=== PATIENT | male | born 1965 | race Caucasian/White ===

== ENCOUNTER 2022-07-23 13:09 | Outpatient (CLI) | payer OTHER, SELFPAY ==
[2022-07-23 21:53] LABS: Albumin* 4.6 g/dL (3.3-5.0); Chloride* 104 mmol/L (96-114)
[2022-07-23 21:54] LABS: Sodium* 137 mmol/L (135-149)
[2022-07-23 21:56] LABS: Aspartate Amino Transferase* 40 U/L (12-35); Bilirubin Total* 0.9 mg/dL (0.1-1.5); Blood Urea Nitrogen* 13 mg/dL (7-30); Carbon Dioxide* 26 mmol/L (20-32); Cholesterol* 220 mg/dL (90-199); Creatinine* 0.8 mg/dL (0.5-1.5); Estimated Glomerular Filt Rate 104 ml/min; Glucose* 109 mg/dL (60-115); Total Protein* 7.9 g/dL (6.0-8.3)
[2022-07-23 21:57] LABS: Alanine Aminotransferase* 29 U/L (4-50); Alkaline Phosphatase* 67 U/L (40-150); Calcium* 9.3 mg/dL (8.4-10.6); HDL Cholesterol* 98 mg/dL (>=40); LDL Cholesterol Calculated 111 mg/dL (<100); Triglycerides* 54 mg/dL (40-149)
[2022-07-23 22:15] LABS: TSH With Reflex to FT4* 0.866 uIU/mL (0.270-4.200)
[2022-07-23 22:21] LABS: PSA Screen* 1.13 ng/mL (0.10-4.00)
== END 2022-07-23 13:10 | disposition home or self-care (01) ==
PROVIDERS: PCP Physician Assistant Medical; Visit Provider Physician Assistant Medical
DX: Z00.00 Encounter for general adult medical examination without abnormal findings (principal); E87.1 Hypo-osmolality and hyponatremia; I10 Essential (primary) hypertension; F41.9 Anxiety disorder, unspecified; Z12.5 Encounter for screening for malignant neoplasm of prostate; Z13.6 Encounter for screening for cardiovascular disorders; Z13.29 Encounter for screening for other suspected endocrine disorder
CPT/HCPCS: 80053; 80061; 84153; 84443

== ENCOUNTER 2022-08-21 09:06 | Outpatient (CLI) | payer OTHER, SELFPAY ==
--- NOTE | 2022-08-21 10:04 | W.ANESCHARGE ---
Anesthesia Charges Start Date/Time Anesthesia Start Date: 08/21/22 Anesthesia Start Time: 09:35 Stop Date/Time Anesthesia Stop Date: 08/21/22 Anesthesia Stop Time: 09:58
--- NOTE | 2022-08-21 10:07 | W.ANESCHARGE ---
Anesthesia Charges Start Date/Time Anesthesia Start Date: 08/21/22 Anesthesia Start Time: 09:35 Stop Date/Time Anesthesia Stop Date: 08/21/22 Anesthesia Stop Time: 09:58
== END 2022-08-21 09:07 | disposition home or self-care (01) ==
PROVIDERS: PCP Physician Assistant Medical; Visit Provider Internal Medicine
DX: Z86.010 Personal history of colon polyps (principal); K63.5 Polyp of colon; K57.30 Diverticulosis of large intestine without perforation or abscess without bleeding
CPT/HCPCS: 00812; 45380; 88305; J2704

== ENCOUNTER 2022-12-16 15:27 | Outpatient (CLI) | payer OTHER, SELFPAY | END 2022-12-16 15:28 | disposition home or self-care (01) | LOC: NFLDREF 12-17 07:40 | PROVIDERS: PCP Physician Assistant Medical; Referring Provider Physician Assistant Medical; Visit Provider Physician Assistant Medical | DX: Z00.00 Encounter for general adult medical examination without abnormal findings (principal); R74.8 Abnormal levels of other serum enzymes; Z23 Encounter for immunization | CPT/HCPCS: 80076; 86703; 86803 ==

== ENCOUNTER 2023-07-14 13:20 | Outpatient (CLI) | payer OTHER, SELFPAY | END 2023-07-14 13:21 | disposition home or self-care (01) | PROVIDERS: PCP Physician Assistant Medical; Visit Provider Physician Assistant Medical | DX: Z12.5 Encounter for screening for malignant neoplasm of prostate (principal); N52.9 Male erectile dysfunction, unspecified; Z13.220 Encounter for screening for lipoid disorders; Z13.29 Encounter for screening for other suspected endocrine disorder; I10 Essential (primary) hypertension | CPT/HCPCS: 80053; 80061; 84403; 84443; G0103 ==

== ENCOUNTER 2023-07-28 12:47 | Outpatient (CLI) | payer OTHER, SELFPAY | END 2023-07-28 12:48 | disposition home or self-care (01) | PROVIDERS: PCP Physician Assistant Medical; Visit Provider Physician Assistant Medical | DX: E87.1 Hypo-osmolality and hyponatremia (principal); I10 Essential (primary) hypertension; R74.8 Abnormal levels of other serum enzymes | CPT/HCPCS: 84100; 84443 ==

== ENCOUNTER 2023-08-25 14:50 | Outpatient (CLI) | payer OTHER, SELFPAY | END 2023-08-25 14:51 | disposition home or self-care (01) | LOC: NFLDREF 08-27 07:57 | PROVIDERS: PCP Physician Assistant Medical; Referring Provider Physician Assistant Medical; Visit Provider Physician Assistant Medical | DX: E87.1 Hypo-osmolality and hyponatremia (principal) | CPT/HCPCS: 83930; 84300 ==

== ENCOUNTER 2023-09-09 15:40 | Outpatient (CLI) | payer OTHER, SELFPAY | END 2023-09-09 15:41 | disposition home or self-care (01) | LOC: NFLDREF 09-10 11:05 | PROVIDERS: PCP Physician Assistant Medical; Referring Provider Physician Assistant Medical; Visit Provider Physician Assistant Medical | DX: E87.1 Hypo-osmolality and hyponatremia (principal); F10.10 Alcohol abuse, uncomplicated | CPT/HCPCS: 80048; 82746; 83735; 84425 ==

== ENCOUNTER 2023-09-24 11:59 | Outpatient (CLI) | payer OTHER, SELFPAY ==
--- NOTE | 2023-09-24 12:15 | US_ITS ---
Patient: SUSAN LUND Facility:?[facility] Patient ID:?[id number] Site Patient ID:?[id number]. Site :?[id number] Study:?US-Abdomen COMPLETE-09/24/2023 12:40:53 PM Ordering Physician:?SIM SOMMER Final Report: HISTORY: Alcohol abuse COMPARISON: None available. TECHNIQUE: Ultrasound examination of the abdomen was performed. FINDINGS: The gallbladder is normal in appearance with no sign of cholelithiasis or acute cholecystitis. A sonographic Peterson sign is not present, with no pain over the gallbladder during ultrasound examination. The common bile duct is normal in caliber at 4 mm. There are a few small simple cysts in the liver of no clinical concern. The largest is in the inferior left lobe measuring 1.1 x 0.8 x 1.0 centimeters, segment 3. The liver shows no sign of solid mass, contour abnormality or ascites. The liver is slightly small, measuring 15.9 centimeters in length. The pancreatic head and body were examined and are normal in appearance. The abdominal aorta is normal in caliber. The portions of the inferior vena cava that are seen are normal in appearance as well. The kidneys are unremarkable, the right measuring 10.6 cm and the left measuring 11.9 cm in length. The spleen is normal in size and appearance. There is a cyst of uncertain etiology medial to the upper pole of the spleen measuring 1.0 x 1.1 x 1.2 centimeters. This is not in a vascular structure, with no color Doppler flow. It may be a small mesenteric cyst, unlikely to be of clinical concern. IMPRESSION: 1. Liver slightly small, measuring 15.9 centimeters in length. A few simple cysts are seen in the liver have no clinical concern. No findings suggestive of cirrhosis. 2. Simple cyst measuring up to 1.2 centimeters in diameter medial to the upper pole of the spleen, uncertain etiology, unlikely to be of clinical concern. 3. No other abnormality seen in the abdomen. Dictated by Rafy Chambers MD @ 09/25/2023 12:11:51 PM Signed by:?Rafy Chambers MD @09/25/2023 12:11:51 PM (Electronic Signature)
== END 2023-09-24 12:00 | disposition home or self-care (01) ==
LOC: US 12:00
PROVIDERS: PCP Physician Assistant Medical; Visit Provider Physician Assistant Medical
DX: F10.10 Alcohol abuse, uncomplicated (principal); E87.1 Hypo-osmolality and hyponatremia; K76.89 Other specified diseases of liver; D73.4 Cyst of spleen
CPT/HCPCS: 76700

== ENCOUNTER 2024-08-02 14:16 | Outpatient (CLI) | payer OTHER, SELFPAY | END 2024-08-02 14:17 | disposition home or self-care (01) | PROVIDERS: PCP Physician Assistant Medical; Visit Provider Physician Assistant Medical | DX: R74.8 Abnormal levels of other serum enzymes (principal); E87.1 Hypo-osmolality and hyponatremia; I10 Essential (primary) hypertension; Z12.5 Encounter for screening for malignant neoplasm of prostate | CPT/HCPCS: 80053; 84443; G0103 ==

== ENCOUNTER 2024-10-16 06:12 | Day surgery (SDC) | payer OTHER, SELFPAY ==
[2024-10-16] VITALS (11 sets, daily range): BP systolic 106–129; BP diastolic 67–82; PULSE 61–84; RESP 14–20; TEMP 36.4–36.6; O2SAT 98–100; BMI 21.7
[2024-10-16] MEDS: LACTATED RINGERS 1000 ML 1,000 ML 100 ML IV (06:15)
[2024-10-16] MEDS: SODIUM CHLORIDE 0.9 % (FLUSH) 10 ML SYRINGE IVF (06:51)
--- NOTE | 2024-10-16 07:13 | W.PM.H&PU ---
History & Physical Update History & Physical Update H&P Reviewed and patient assessed: No changes noted
--- NOTE | 2024-10-16 07:15 | P.GSOP_ITS ---
Operative Note Date of procedure: 10/16/24 Pre-op diagnosis: 1. Symptomatic right inguinal hernia. 2. Small left inguinal hernia. Post-op diagnosis: 1. Right indirect and direct inguinal hernia with cord lipoma. 2. Left small direct inguinal hernia. Type of Procedure: 1. Laparoscopic bilateral inguinal hernia repair with mesh. Indications: 59-year-old male was seen in clinic for evaluation of right inguinal hernia. Patient was at work attempting to lift a heavy pipe and felt something unusual in her right groin. He did not notice a bulge after that feeling but when he was taking a shower at home, he noticed right inguinal bulge. He denied pain at the bulge. The bulge has been out most of the time. Patient has been wearing a hernia belt to prevent the bulge from popping out. Patient denied any episodes of incarceration. On clinical exam with the patient standing up there was an easily noticeable right inguinal hernia that was reducible. With the patient doing Valsalva, there was also small left inguinal hernia palpated. Given patient's clinical history and his physical exam, a laparoscopic bilateral inguinal hernia repair was recommended. The procedure discussed in detail. The risks associated procedure including infection, bleeding, injury to preperitoneal organs, and hernia recurrence were all discussed with the patient, and he agreed to proceed. Procedure Description: After discussing the risks and benefits of the procedure, the patient signed informed consent.? The operative site was marked and the patient was brought to the operating room and placed on the operating table in supine position.? Care was taken to pad the patient's pressure points.?? The patient was then intubated by anesthesia.?? The operative site was then prepped and draped in the usual sterile fashion.? A time-out was then performed. An infraumbilical skin incision was made with a scalpel and subcutaneous tissues were dissected with electrocautery. Anterior sheath was incised with electrocautery and rectus muscle was retracted laterally. A 12 mm spacemaker dissector system was introduced into the incision and advanced over the posterior sheath. Preperitoneal space was dissected with manually insufflating air under direct visualization. Once the tissues were dissected, the balloon was deflated and removed.? A laparoscopic balloon was placed into preperitoneal space and balloon was inflated. Preperitoneal space was insufflated with air. No bleeding was identified upon examination of preperitoneal space. We then placed two 5 mm ports suprapubically under direct visualization. ? The preperitoneal tissues were bluntly dissected with graspers.? The pubic bone was identified and? cleared from preperitoneal tissue.??I first started on the right side. Inferior epigastrics on the right?side were retracted towards the abdominal wall.?? Spermatic cord? was identified and dissected circumferentially.? This was done bluntly. The direct hernia space was identified.?The indirect hernia sac was noted and peritoneum was dissected bluntly from the spermatic cord. There was also small amount of preperitoneal fat attached to the spermatic cord. This cord lipoma was reduced from the internal ring and retracted cephalad.?? When adequate space was developed for me sh placement, I turned my attention to the left side. The left inferior epigastrics were retracted towards the abdominal wall. The left inguinal space was developed bluntly. The spermatic cord was identified and circumferentially dissected bluntly with graspers. Peritoneal edge was identified and there was no evidence of indirect inguinal hernia. Peritoneal edge was dissected away from the spermatic cord and retracted cephalad. Small direct inguinal space was identified on the left side. When adequate space was developed for mesh placement, left-sided Parietex mesh was then placed into the preperitoneal space, and positioned around the left spermatic cord. The mesh was tacked medially and laterally with tacks. Similarly, a right sided Parietex? mesh was used and positioned around the spermatic cord. The mesh was tacked medially and laterally with?tacks.? Additional local anesthetic was injected directly into pre-peritoneal space. ? The space was deflated under direct visualization and mesh appeared to be still lying in a good position. The ports were then removed. Anterior sheath was then closed with a running 0-0 vicryl suture. Skin was closed with 4-0 monocryl using subcuticular stitch. Steri strips were applied over the laparoscopic?incisions. ? All counts were correct at the end of the case. Patient tolerated the procedure well and was transferred to PACU without any complications. Findings: Cord lipoma on the right side as well as indirect and direct inguinal hernia. On the left side only small direct inguinal space was identified. Bilateral hernias repaired with mesh. Anesthesia: GETA Surgeon: Juan Espinoza MD Estimated blood loss (mL): 5 Condition: stable Disposition: PACU
[2024-10-16] MEDS: CEFAZOLIN 1 GM inj IVP (07:38)
[2024-10-16] MEDS: LIDOCAINE 1%-EPI 1:100,000 15 ML INFILTRATI (07:42)
[2024-10-16] MEDS: BUPIVACAINE 0.25% 30 ML 15 ML INJECTION (07:42)
--- NOTE | 2024-10-16 07:49 | SUR.OPER ---
PATIENT QUESTIONS ANSWERED SATISFACTORILY PREOPERATIVELY. PATIENT BROUGHT TO OR #4 PER CART. Patient positioned supine on OR #4 bed. The perioperative team supported arms bilaterally on arm boards. Perioperative team tucked the arms at pt. sides in a neutral position. Final approval of positioning by surgeon.
--- NOTE | 2024-10-16 09:14 | P.ANES_ITS ---
Anesthesia Charges Start Date/Time Anesthesia Start Date: 10/16/24 Anesthesia Start Time: 07:32 Stop Date/Time Anesthesia Stop Date: 10/16/24 Anesthesia Stop Time: 09:10 Coding CPT Codes CPT Codes: ANESTH SURG LOWER ABDOMEN - 42032 ([id number]) P2 - PATIENT W/MILD SYST DISEASE, QK - SSDS MK 2 ADVANCED OPERATOR 2-4 CNCRNT ANES PROC, QX - REMARKETING REP SVC W/ MD MED DIRECTION
--- NOTE | 2024-10-16 09:14 | W.ANESCHARGE ---
Anesthesia Charges Start Date/Time Anesthesia Start Date: 10/16/24 Anesthesia Start Time: 07:32 Stop Date/Time Anesthesia Stop Date: 10/16/24 Anesthesia Stop Time: 09:10 Coding CPT Codes CPT Codes: ANESTH SURG LOWER ABDOMEN - 08812 ([id number]) P2 - PATIENT W/MILD SYST DISEASE, QK - TABLE FILLER 2-4 CNCRNT ANES PROC, QX - LOADER MAGAZINE GRINDER SVC W/ MD MED DIRECTION
--- NOTE | 2024-10-16 09:41 | P.ANES_ITS ---
Anesthesia Charges Start Date/Time Anesthesia Start Date: 10/16/24 Anesthesia Start Time: 07:32 Stop Date/Time Anesthesia Stop Date: 10/16/24 Anesthesia Stop Time: 09:10 Coding CPT Codes CPT Codes: ANESTH SURG LOWER ABDOMEN - 95656 ([id number]) P2 - PATIENT W/MILD SYST DISEASE, QX - FILM OR TAPE LIBRARIAN SVC W/ MD MED DIRECTION, QK - CUTLERY GRINDER 2-4 CNCRNT ANES PROC
--- NOTE | 2024-10-16 09:41 | W.ANESCHARGE ---
Anesthesia Charges Start Date/Time Anesthesia Start Date: 10/16/24 Anesthesia Start Time: 07:32 Stop Date/Time Anesthesia Stop Date: 10/16/24 Anesthesia Stop Time: 09:10 Coding CPT Codes CPT Codes: ANESTH SURG LOWER ABDOMEN - 67745 ([id number]) P2 - PATIENT W/MILD SYST DISEASE, QX - APPLICATION SECURITY ARCHITECT SVC W/ MD MED DIRECTION, QK - SENIOR CONSTRUCTION PROJECT MANAGER 2-4 CNCRNT ANES PROC
== END 2024-10-16 10:39 | disposition home or self-care (01) ==
PROVIDERS: PCP Physician Assistant Medical; Visit Provider Surgery
PROC: (CPT 49650; principal; 2024-10-16 07:30)
DX: K40.20 Bilateral inguinal hernia, without obstruction or gangrene, not specified as recurrent (principal)
CPT/HCPCS: 49650; 00840; C1781; J0330; J0665; J0690; J1100; J1171; J2250; J2704; J2710; J3010; J7120